=== PATIENT | female | born 1955 | race Hispanic/Latino ===

== ENCOUNTER 2018-05-05 01:06 | Emergency (ER) | payer MEDICARE ==
[2018-05-05 01:17] VITALS: BP 126/85
--- NOTE | 2018-05-05 01:37 | Emergency Department Report ---
ED Lower Extremity HPI - General Chief Complaint: Extremity Injury, Lower Stated Complaint: RIGHT FOOT SPRAIN, SEIZURE Source: patient Mode of arrival: Ambulatory Limitations: No Limitations - History of Present Illness Initial Comments: This is a 63-year-old female that presents with right foot pain for 2- 3 days. Past medical history of seizures and depression. Patient states she fell at home a few days ago from a possible seizure. She is now experiencing pain to right foot on the lateral side. Pain is worse with weightbearing. She currently reports pain is 3 out of 10 on pain scale. Patient reports intermittent swelling to lateral side. She is currently not taking anything for symptom relief or applied ice. She requested refills of dilantin. She denies obvious deformity, erythema, numbness or tingling, weakness, or paresthesias. MD Complaint: foot injury (right) Onset/Timin -: days(s) Injury: Foot: Right Type of Injury: unknown Place: home Severity: mild Severity scale (0 -10): 3 Improves With: immobilization Worsens With: weight bearing Context: fall Associated Symptoms: swelling, ambulatory. denies: snap/pop sensation, numbness, tingling, unable to bear weight - Related Data Previous Rx's Medication Instructions Recorded Last Taken Type Phenytoin [Dilantin] 100 mg PO TID #90 capsule 07/28/14 Unknown Rx Phenytoin Sodium Extended 100 mg PO TID #90 capsule 05/05/18 Unknown Rx [Dilantin] Allergies Allergy/AdvReac Type Severity Reaction Status Date / Time No Known Allergies Allergy Verified 12/11/13 23:39 ED Review of Systems ROS: Stated complaint: RIGHT FOOT SPRAIN, SEIZURE Other details as noted in HPI Constitutional: denies: chills, fever Respiratory: denies: cough, shortness of breath, wheezing Cardiovascular: denies: chest pain, palpitations Musculoskeletal: arthralgia (right foot). denies: back pain, joint swelling Skin: denies: rash, lesions Neurological: denies: headache, weakness, paresthesias Psychiatric: denies: anxiety, depression ED Past Medical Hx - Past Medical History Previous Medical History?: Yes Hx Seizures: Yes Hx Psychiatric Treatment: Yes (depression) - Surgical History Past Surgical History?: No - Social History Smoking Status: Former Smoker Substance Use Type: None - Medications Home Medications: Home Medications Medication Instructions Recorded Confirmed Last Taken Type Phenytoin [Dilantin] 100 mg PO TID #90 capsule 07/28/14 Unknown Rx Phenytoin Sodium Extended 100 mg PO TID #90 capsule 05/05/18 Unknown Rx [Dilantin] ED Physical Exam - General Limitations: No Limitations General appearance: alert, in no apparent distress - Respiratory Respiratory exam: Present: normal lung sounds bilaterally. Absent: respiratory distress - Cardiovascular Cardiovascular Exam: Present: regular rate, normal rhythm. Absent: systolic murmur, diastolic murmur, rubs, gallop - GI/Abdominal GI/Abdominal exam: Present: soft, normal bowel sounds - Expanded Lower Extremity Exam Right Hip exam: Present: normal inspection, full ROM Upper Leg exam: Present: normal inspection, full ROM Knee exam: Present: normal inspection, full ROM Lower Leg exam: Present: normal inspection, full ROM Ankle exam: Present: normal inspection, full ROM Foot/Toe exam: Present: full ROM, tenderness (tenderness and swelling to 5th lateral tuberosity), swelling. Absent: abrasion, laceration, ecchymosis, deformity, crepidus, dislocation, erythema, amputation, puncture wound, foreign body, calcaneal tenderness, tenderness at base of 5th metatarsal, nail avulsion, subungual hematoma Neuro vascular tendon exam: Present: no vascular compromise Gait: Positive: observed and limited by pain - Neurological Exam Neurological exam: Present: alert, oriented X3, normal gait - Psychiatric Psychiatric exam: Present: normal affect, normal mood - Skin Skin exam: Present: warm, dry, intact, normal color. Absent: rash ED Course Vital Signs 05/05/18 05/05/18 01:13 02:48 Temperature 97.8 F Pulse Rate 106 H 85 Respiratory 14 16 Rate Blood Pressure 126/85 O2 Sat by Pulse 96 99 Oximetry ED Lower Extremity MDM - Radiology Data Radiology results: report reviewed EXAM: XR FOOT 2V RT HISTORY: pain lateral COMPARISON: None available. FINDINGS: Three views of right foot obtained. Transverse fracture of the base of the 5th metatarsal body. No angulation or displacement. Remaining bony structures are intact. Mild narrowing and hypertrophic spurring of the 1st MTP joint. Mild bunion formation of the 1st metatarsal head. Small to moderate plantar calcaneal spur. IMPRESSION: Acute transverse fracture of the base of the 5th metatarsal body. - Medical Decision Making Patient was examined by me. Vitals are normal and patient is in no acute distress. Obtained a x-ray of the right foot. X-rays dictated by radiologist and report reviewed by myself. Acute transverse fracture of the base of the 5th metatarsal body. A post op shoe applied to right foot. Patient informed of results. Start dilantin 100 mg po tid, #90. Plan discussed with patient to discharge home and treat outpatient. He agrees with ER plan. Patient discharged home in stable condition. Follow up with PCP in 2-3 days. Critical care attestation.: If time is entered above; I have spent that time in minutes in the direct care of this critically ill patient, excluding procedure time. ED Disposition Clinical Impression: Right foot pain, History of seizure Fracture of fifth toe, right, closed Qualifiers: Encounter type: initial encounter Qualified Code(s): S92.501A - Displaced unspecified fracture of right lesser toe(s), initial encounter for closed fracture Disposition: DC- TO HOME OR SELFCARE Is pt being admited?: No Does the pt Need Aspirin: No Condition: Stable Instructions: Toe Fracture (ED), Arthralgia (ED) Additional Instructions: Follow up with Orthopedic surgeon. Prescriptions: Phenytoin Sodium Extended [Dilantin] 100 mg PO TID #90 capsule Referrals: SHON SOLARES MD [Primary Care Provider] - 3-5 Days EMMA HERNÁNDEZ MD [Staff Physician] - 3-5 Days [facility] [Provider Group] - 3-5 Days Time of Disposition: 02:30
--- NOTE | 2018-05-05 02:00 | XRay Report ---
FINAL REPORT EXAM: XR FOOT 2V RT HISTORY: pain lateral COMPARISON: None available. FINDINGS: Three views of right foot obtained. Transverse fracture of the base of the 5th metatarsal body. No an gulation or displacement. Remaining bony structures are intact. Mild narrowing and hypertrophic spurr ing of the 1st MTP joint. Mild bunion formation of the 1st metatarsal head. Small to moderate plantar calcaneal spur. IMPRESSION: Acute transverse fracture of the base of the 5th metatarsal body.
== END 2018-05-05 02:48 | disposition home or self-care (01) ==
LOC: ED 01:06
DX: S92.501A Displaced unspecified fracture of right lesser toe(s), initial encounter for closed fracture (principal); R56.9 Unspecified convulsions; F32.9 Major depressive disorder, single episode, unspecified; Z87.891 Personal history of nicotine dependence; Z79.899 Other long term (current) drug therapy; W18.30XA Fall on same level, unspecified, initial encounter; Y93.89 Activity, other specified; Y99.8 Other external cause status; Y92.019 Unspecified place in single-family (private) house as the place of occurrence of the external cause
CPT/HCPCS: 99283

== ENCOUNTER 2018-08-14 01:13 | Emergency (ER) | payer MEDICARE ==
[2018-08-14 01:27] VITALS: BP 132/83
== END 2018-08-14 01:59 | disposition left against medical advice (07) ==
LOC: ED 01:13
DX: Z76.0 Encounter for issue of repeat prescription (principal); Z53.21 Procedure and treatment not carried out due to patient leaving prior to being seen by health care provider

== ENCOUNTER 2018-08-14 20:16 | Emergency (ER) | payer MEDICARE ==
[2018-08-14 20:25] VITALS: BP 148/77
--- NOTE | 2018-08-14 20:45 | Emergency Department Report ---
Chief Complaint: Medical Clearance Stated Complaint: SEIZURE MEDICATION REFILL NEEDED Time Seen by Provider: 08/14/18 20:44 - HPI History of Present Illness: Pt presents for a refill of her dilantin states she ran out of her dilantin yesterday - Exam Vital Signs: Vital Signs 08/14/18 20:21 Temperature 98.4 F Pulse Rate 96 H Respiratory 18 Rate Blood Pressure 148/77 O2 Sat by Pulse 96 Oximetry MSE screening note: Focused history and physical exam performed. ED Disposition for MSE Clinical Impression: Medication refill Disposition: TO HOME OR SELFCARE Condition: Stable Instructions: Recurrent Seizures Adult (ED) Additional Instructions: Please follow up with a primary care doctor in the next 2-3 days. Will refill your medication this time. Will need to have future Prescriptions: Phenytoin [Dilantin] 100 mg PO TID #90 capsule Referrals: [facility] [Provider Group] - 2-3 Days JYOTI ACEVEDO MD [Primary Care Provider] - 2-3 Days Print Language: FILIPINO
--- NOTE | 2018-08-14 21:38 | Emergency Department Report ---
ED Medical Clearance HPI - General Chief complaint: Medical Clearance Stated complaint: SEIZURE MEDICATION REFILL NEEDED Time Seen by Provider: 08/14/18 20:44 Source: patient Mode of arrival: Ambulatory - History of Present Illness Initial comments: Pt is a 63 yo female who presents to the ED for medication refill. She states she has a PMHx of seizure disorder and presents for a refill of her dilantin. The patient states she ran out of her dilantin yesterday. She does not have a PCP. She denies any symptoms at all. She denies any recent seizures. Home medications: Previous Rx's Medication Instructions Recorded Last Taken Type Phenytoin Sodium Extended 100 mg PO TID #90 capsule 05/05/18 Unknown Rx [Dilantin] Phenytoin [Dilantin] 100 mg PO TID #90 capsule 08/14/18 Unknown Rx Allergies/Adverse reactions: Allergies Allergy/AdvReac Type Severity Reaction Status Date / Time No Known Allergies Allergy Verified 12/11/13 23:39 ED Review of Systems ROS: Stated complaint: SEIZURE MEDICATION REFILL NEEDED Other details as noted in HPI Comment: All other systems reviewed and negative ED Past Medical Hx - Past Medical History Previous Medical History?: Yes Hx Seizures: Yes Hx Psychiatric Treatment: Yes (depression (pt denies)) - Surgical History Past Surgical History?: No - Social History Smoking Status: Former Smoker Substance Use Type: None - Medications Home Medications: Home Medications Medication Instructions Recorded Confirmed Last Taken Type Phenytoin Sodium Extended 100 mg PO TID #90 capsule 05/05/18 Unknown Rx [Dilantin] Phenytoin [Dilantin] 100 mg PO TID #90 capsule 08/14/18 Unknown Rx ED Physical Exam - General Limitations: No Limitations General appearance: alert, in no apparent distress - Head Head exam: Present: atraumatic, normocephalic - Eye Eye exam: Present: normal appearance, PERRL - ENT ENT exam: Present: mucous membranes moist - Respiratory Respiratory exam: Present: normal lung sounds bilaterally. Absent: respiratory distress, wheezes, rales, rhonchi, stridor, chest wall tenderness, accessory muscle use, decreased breath sounds, prolonged expiratory - Cardiovascular Cardiovascular Exam: Present: regular rate, normal rhythm, normal heart sounds. Absent: systolic murmur, diastolic murmur, rubs, gallop - Neurological Exam Neurological exam: Present: alert, oriented X3 - Psychiatric Psychiatric exam: Present: normal affect, normal mood - Skin Skin exam: Present: warm, dry, intact ED Course Vital Signs 08/14/18 08/14/18 08/14/18 20:21 20:42 20:45 Temperature 98.4 F 98.4 F Pulse Rate 96 H 94 H Respiratory 18 18 18 Rate Blood Pressure 148/77 148/77 O2 Sat by Pulse 96 96 96 Oximetry ED Medical Decision Making - Medical Decision Making VSS. Pt presents for refill of her dilantin for sz disorder. She denies any sx at all. the patient was given two different PCP offices to follow up with for future medication refills. Gave pt a one month supply of her medication. Advised pt that all future refills would need to be through a PCP for continuity of care. Advised pt to follow up with PCP in the next 2-3 days. REturn to the ED if begin experiencing any symptoms. discussed case with DR. Jackson who agreed with plan and discharge home. ED Disposition Clinical Impression: Medication refill Disposition: DC- TO HOME OR SELFCARE Is pt being admited?: No Does the pt Need Aspirin: No Condition: Stable Instructions: Recurrent Seizures Adult (ED) Additional Instructions: Please follow up with a primary care doctor in the next 2-3 days. Will refill your medication this time. Will need to have future Prescriptions: Phenytoin [Dilantin] 100 mg PO TID #90 capsule Referrals: JYOTI ACEVEDO MD [Primary Care Provider] - 2-3 Days [facility] [Provider Group] - 2-3 Days Time of Disposition: 21:44 Print Language: UPPER SORBI[place]
== END 2018-08-14 21:53 | disposition home or self-care (01) ==
LOC: ED 20:16
DX: G40.909 Epilepsy, unspecified, not intractable, without status epilepticus (principal); F32.9 Major depressive disorder, single episode, unspecified; Z76.0 Encounter for issue of repeat prescription; Z87.891 Personal history of nicotine dependence
CPT/HCPCS: 99281